=== PATIENT | female | born 1960 | race Hispanic/Latino ===

== ENCOUNTER → 2017-07-04 | Day surgery (SDC) | payer MEDICARE ==
[~2017-07-04] VITALS: Ht 162.6 cm; Wt 79.8 kg
[~2017-07-04] MED LIST: AZTH50T PO; BELIMUMAB IV ONE; CHOL100045 PO; DICL100G8 TP; GABA-502 PO; HYDR25TA4 PO; INSU100I13 SUBQ; LACT1CAP73 PO; LANS30CA PO; LORA10CA9 PO; LOSA50TA37 PO; LOVA40TA PO; METF500T4 PO; MULT-1018 PO; OMEG1CAP25 PO; RASP100C PO; SODIUM CHLORIDE 0.9% IV ONE; TRAM50TA2 PO; TURM500C7 PO; UBID10CA4 PO; WARF1TAB6 PO; [UNRECOGNIZED DRUG - CODE] PO; diphenhydrAMINE 25 mg Capsule PO PRN
[2017-07-04 10:13] VITALS: BP 137/81; PULSE 95; RESP 18; O2SAT 97
[2017-07-04 11:46] VITALS: BP 142/84; PULSE 76; RESP 18; O2SAT 100
[2017-07-04 13:00] VITALS: BP 169/88; PULSE 77; RESP 18; O2SAT 100
--- NOTE | 2017-07-04 13:07 | NUR ---
Beluzimab-First dose Pt pre medicated as ordered. Started medication at 100cchr for 15mins. VSS no signs of ADR. Pt then tolerated medication at the full rate. Pt c/O of a bit of nausea at the stop of the infusion. Pt drank a soda and waiting 30 minutes, VSS nausea subsided. Pt BP a bit elevated, pt will monitor at home and notify doctor if it doesn't start lowering. Pt denies DUFFY, SOB or flushing.
== END | disposition home or self-care (01) ==
LOC: MOCO 10:34
PROVIDERS: ATTEND Specialist/Technologist Athletic Trainer
DX: M32.9 Systemic lupus erythematosus, unspecified (principal)
CPT/HCPCS: 96365; J0490; J7050